=== PATIENT | female | born 1975 | race Two or more races ===

== ENCOUNTER 2018-09-13 12:00 | Inpatient (IN) | payer OTHER ==
[~2018-09-13] VITALS: Ht 154.9 cm; Wt 69.9 kg
[2018-09-13] MEDS ORDERED: TAMOXIFEN CITRA20 MG PO (16:41)
[2018-09-21] MEDS ORDERED: ULTRAM50 MG PO (10:10)
[2018-09-21] MEDS ORDERED: COLACE100 MG PO (10:10)
== END 2018-09-21 14:34 | disposition home or self-care (01) | DRG 743 ==
LOC: OB/GYN 09-20 06:10 → O/R 09-20 06:10 → RECOVERY 09-20 08:30 → OB/GYN 09-20 18:26
PROVIDERS: ADMIT Obstetrics & Gynecology
PROC: 0UT24ZZ Resection of Bilateral Ovaries, Percutaneous Endoscopic Approach (ICD-10-PCS; 2018-09-20)
PROC: 0UT74ZZ Resection of Bilateral Fallopian Tubes, Percutaneous Endoscopic Approach (ICD-10-PCS; principal; 2018-09-20 08:30)
DX: N83.01 Follicular cyst of right ovary (principal); N83.292 Other ovarian cyst, left side; N83.291 Other ovarian cyst, right side; N83.12 Corpus luteum cyst of left ovary